=== PATIENT | male | born 1990 | race American Indian/Alaskan Native ===

== ENCOUNTER 2021-04-06 17:30 | Emergency (ER) | payer SELFPAY ==
[2021-04-06 17:45] VITALS: BP 136/89
--- NOTE | 2021-04-06 19:24 | Emergency Department Report ---
ED General Adult HPI - General Chief complaint: Skin Rash Stated complaint: ALERGIC REACTION SWOLLEN LIP Time Seen by Provider: 04/06/21 18:58 Source: patient Mode of arrival: Ambulatory Limitations: No Limitations - History of Present Illness Initial comments: 31-year-old -[place] male patient presents with complaints of left upper lip swelling and itching x3 days. He denies any history of cold sores or injuries to the lip. He states he believes he is having allergic reaction to an unknown food or substance. No dysphagia, cough, shortness of breath, or fever/chills/sweats per patient. Benadryl and Blistex or not helping per patient. -: Sudden - Related Data Previous Rx's Medication Instructions Recorded Last Taken Type Valacyclovir HCl [Valacyclovir] 1,000 mg PO BID 10 Days #20 tablet 04/06/21 Unknown Rx Allergies Allergy/AdvReac Type Severity Reaction Status Date / Time No Known Allergies Allergy Unverified 04/06/21 17:43 ED Review of Systems ROS: Stated complaint: ALERGIC REACTION SWOLLEN LIP Other details as noted in HPI Constitutional: denies: chills, diaphoresis, fever, malaise ENT: denies: throat pain Respiratory: denies: cough Skin: rash, lesions ED Past Medical Hx - Past Medical History Previous Medical History?: No Hx HIV: Yes - Surgical History Past Surgical History?: No - Medications Home Medications: Home Medications Medication Instructions Recorded Confirmed Last Taken Type Valacyclovir HCl [Valacyclovir] 1,000 mg PO BID 10 Days #20 tablet 04/06/21 Unknown Rx ED Physical Exam - General Limitations: No Limitations General appearance: alert, in no apparent distress - Head Head exam: Present: atraumatic, normocephalic - Eye Eye exam: Present: normal appearance - ENT ENT exam: Present: other (Swelling noted to left upper lip with herpetic blisters in a circular pattern noted; no surrounding erythema noted; no tenderness to palpation of) - Respiratory Respiratory exam: Absent: respiratory distress - Cardiovascular Cardiovascular Exam: Present: regular rate - Neurological Exam Neurological exam: Present: alert, oriented X3 - Psychiatric Psychiatric exam: Present: normal affect, normal mood - Skin Skin exam: Present: warm, dry, intact, normal color ED Course Vital Signs 04/06/21 17:44 Temperature 99.0 F Pulse Rate 101 H Respiratory 16 Rate Blood Pressure 136/89 O2 Sat by Pulse 98 Oximetry ED Medical Decision Making - Medical Decision Making 31-year-old -[place] male patient presents with complaints of left upper lip swelling and itching x3 days. He denies any history of cold sores or injuries to the lip. He states he believes he is having allergic reaction to an unknown food or substance. No dysphagia, cough, shortness of breath, or fever/chills/sweats per patient. Benadryl and Blistex or not helping per jessenia ent. Herpes labialis noted on exam. Will treat with valacyclovir. Recommend follow- up with primary care in 3 to 5 days as needed. Heart rate repeated at 88 on exam. His vitals are normal, he is well-appearing, he is stable for discharge home strict return precautions discussed in detail with patient who verbalized understanding. Critical care attestation.: If time is entered above; I have spent that time in minutes in the direct care of this critically ill patient, excluding procedure time. ED Disposition Clinical Impression: Herpes labialis Disposition: DC-01 TO HOME OR SELFCARE Is pt being admited?: No Condition: Stable Instructions: Cold Sore Prescriptions: Valacyclovir HCl [Valacyclovir] 1,000 mg PO BID 10 Days #20 tablet Referrals: [facility] [Provider Group] - 3-5 Days
== END 2021-04-06 20:01 | disposition home or self-care (01) ==
LOC: ED 17:30
DX: B00.1 Herpesviral vesicular dermatitis (principal); Z79.899 Other long term (current) drug therapy; Z21 Asymptomatic human immunodeficiency virus [HIV] infection status
CPT/HCPCS: 99281